=== PATIENT | female | born 1995 | race Caucasian/White ===

== ENCOUNTER 2020-03-04 05:51 | Day surgery (SDC) | payer OTHER ==
[2020-02-29 17:03] VITALS: BMI 24.4
[2020-03-04] MEDS ORDERED: PROPOFOL 20 ML ONE ×2 (07:18→08:27)
[2020-03-04] MEDS ORDERED: MIDAZOLAM HCL 2 MG/2 ML SINGLE DOSE VIAL ONE (07:18)
[2020-03-04] MEDS ORDERED: KETOROLAC TROMETHAMINE 30 MG/1 ML VIAL ONE (08:22)
[2020-03-04] MEDS ORDERED: ceFAZolin SODIUM 1 GM VIAL IVPB ONE (08:22)
[2020-03-04] MEDS ORDERED: ceFAZolin SODIUM 1 GM VIAL ONE (08:22)
[2020-03-04] MEDS ORDERED: DEXAMETHASONE SOD PHOSPHATE 4 MG/1 ML VIAL ONE (08:22)
[2020-03-04] MEDS ORDERED: OXYTOCIN 10 UNITS/ML VIAL ONE (08:28)
[2020-03-04] MEDS ORDERED: IBUPROFEN 400 MG TABLET (FP) PO PRN (08:45)
[2020-03-04] MEDS ORDERED: ACETAMINOPHEN 325 MG TABLET (FP) PO PRN (08:45)
[2020-03-04] MEDS ORDERED: ONDANSETRON 4 MG/2 ML VIAL IVPUSH PRN (08:47)
[2020-03-04] MEDS ORDERED: oxyCODONE HCL 5 MG TABLET PO PRN (08:47)
[2020-03-04 11:30] VITALS: BP 100/62; PULSE 64; TEMP 97.8
== END 2020-03-04 11:20 | disposition home or self-care (01) ==
LOC: JASUSAT 05:51
PROVIDERS: ATTEND Specialist
PROC: 10A07ZZ Abortion of Products of Conception, Via Natural or Artificial Opening (ICD-10-PCS; principal; 2020-03-04 08:00)
DX: Z33.2 Encounter for elective termination of pregnancy (principal); Z3A.09 9 weeks gestation of pregnancy
CPT/HCPCS: 86850; 86900; 86901; 88305-TC; 94760

== ENCOUNTER 2022-12-28 14:30 | Emergency (ER) | payer BC, OTHER ==
[2022-12-28] MEDS ORDERED: SODIUM CHLORIDE 0.9% 1000 ML INFUS.BAG IV ONE (14:46)
[2022-12-28] MEDS ORDERED: ACETAMINOPHEN 1000 MG/100 ML BAG IVPB ONE ×2 (14:46→19:55)
[2022-12-28] MEDS ORDERED: FAMOTIDINE 20 MG/50 ML IVPB 20 MG/50 ML MG IVPB ONE ×2 (14:46→16:40)
[2022-12-28 14:50] VITALS: BP 126/87; PULSE 66; RESP 18; TEMP 98.6; BMI 24.7
[2022-12-28] MEDS ORDERED: ACETAMINOPHEN INJECTION 100 ML IVPB ONE ×2 (14:53→20:25)
[2022-12-28 15:29] LABS: HEMATOCRIT 37.4 % (32.4-45.2); HEMOGLOBIN 12.6 G/dL (10.7-15.3); MCH 31.1 pg (25.7-33.7); MCHC 33.6 g/dl (32.0-36.0); MEAN CELL VOLUME 92.6 fl (80-96); MEAN PLT VOLUME 9.6 fl (7.5-11.1); PLATELET COUNT 217.4 10^3/uL (134-434); RBC 4.04 10^6/uL (3.60-5.2); RDW 13.3 % (11.6-15.6); WHITE BLOOD COUNT 6.9 10^3/uL (4.0-10.8)
[2022-12-28 15:31] LABS: EPITHELIAL CELLS MODERATE /hpf; URINE MUCUS MODERATE
[2022-12-28 15:38] LABS: INR 1.13 (0.83-1.09); PROTHROMBIN TIME (PATIENT) 13.1 SEC (9.7-13.0)
[2022-12-28 15:47] LABS: ALBUMIN 4.4 g/dl (3.4-5.0); BLOOD UREA NITROGEN 9.3 mg/dl (7-18); CALCIUM 8.9 mg/dl (8.5-10.1); CREATININE 0.6 mg/dl (0.6-1.3); POTASSIUM 3.5 mmol/L (3.5-5.1); SGOT/AST 17.1 U/L (15-37); TOT PROT 6.7 g/dl (6.4-8.2)
[2022-12-28 17:45] LABS: BILIRUBIN,TOTAL 0.8 mg/dL (0.2-1)
[2022-12-28 20:11] LABS: HEMATOCRIT 33.7 % (32.4-45.2); HEMOGLOBIN 11.6 G/dL (10.7-15.3); MCH 31.6 pg (25.7-33.7); MCHC 34.5 g/dl (32.0-36.0); MEAN CELL VOLUME 91.8 fl (80-96); MEAN PLT VOLUME 9.4 fl (7.5-11.1); PLATELET COUNT 201.8 10^3/uL (134-434); RBC 3.67 10^6/uL (3.60-5.2); RDW 13.4 % (11.6-15.6); WHITE BLOOD COUNT 7.2 10^3/uL (4.0-10.8)
== END 2022-12-28 20:52 | disposition home or self-care (01) ==
LOC: FER 14:30
PROC: 3E033GC Introduction of Other Therapeutic Substance into Peripheral Vein, Percutaneous Approach (ICD-10-PCS; principal; 2022-12-28)
PROC: 3E033NZ Introduction of Analgesics, Hypnotics, Sedatives into Peripheral Vein, Percutaneous Approach (ICD-10-PCS; 2022-12-28)
PROC: 3E033NZ Introduction of Analgesics, Hypnotics, Sedatives into Peripheral Vein, Percutaneous Approach (ICD-10-PCS; 2022-12-28)
DX: R10.30 Lower abdominal pain, unspecified (principal); R10.2 Pelvic and perineal pain; R18.8 Other ascites
CPT/HCPCS: 36415; 74177-TC; 76830-TC; 80053; 81003; 81015; 83690; 84703; 85027; 85610; 85730; 87086; 99285-25; Q9967